=== PATIENT | male | born 1975 | race Caucasian/White ===

== ENCOUNTER 2021-11-03 23:07 | Emergency (ER) | payer SELFPAY ==
--- NOTE | 2021-11-03 23:11 | NUR ---
Pt bib [id number] for fentanyl overdose from [facility], upon arrival to ER, states he is fine and doesn't want to be seen, patient walked out of ER with steady gait, no acute signs of distress, A&O x 3.
== END 2021-11-03 23:13 | disposition left against medical advice (07) ==
LOC: ER 23:07
DX: Z53.21 Procedure and treatment not carried out due to patient leaving prior to being seen by health care provider (principal)